=== PATIENT | male | born 1960 | race Caucasian/White ===

== ENCOUNTER 2021-02-27 16:48 | Emergency (ER) | payer BC ==
--- NOTE | 2021-02-27 18:07 | EDM.PDOC ---
<Jorge Barnett - Last Filed: 02/27/21 23:48> ED HPI GENERAL MEDICAL PROBLEM - General Chief Complaint: Respiratory Problem Stated Complaint: cough sob lung pain Time Seen by Provider: 02/27/21 17:40 - Related Data Allergies Allergy/AdvReac Type Severity Reaction Status Date / Time No Known Allergies Allergy Verified 02/27/21 17:23 Home Meds: Home Meds . [No Known Home Meds] 02/28/21 [History] #1 Interpretation EKG Date: 02/27/21 Time: 18:11 Rhythm: NSR Rate (Beats/Min): 91 [place]: Other (Extreme axis) P-Wave: Present QRS: Other (RVH) ST-T: Other (T-wave inversion inferior + anterolateral leads) QT: Normal Comparison: NA - No Prior EKG Course - Re-Assessments/Exams Free Text/Narrative Re-Assessment/Exam: 02/27/21 19:[address] Reaves for change of shift. I agree with his history and physical examination as documented, although the patient clarified that his symptoms initially began around 02/13/2021, that he tested negative for the SARS-CoV-2 virus on 02/16/2021, and that his symptoms worsened around 02/18/2021. He confirmed that he has not seen a physician for a general physical exam for more than 40 years. His only surgeries are wisdom teeth extractions and an umbilical herniorrhaphy. He does not smoke, nor has he ever. He drinks alcohol rarely. No history of drug abuse. He is single, living alone. He works at [employer]. He received 2 [employer] vaccinations. His oxygen saturation is about 97% while on 1.25 L of oxygen per nasal cannula. Portable chest x-ray is read by Dr. Garcia as: 1. Mild increased density within the right lung base. Difficult to exclude an area of pneumonia. Please correlate with the patient's symptoms. 2. Other findings believed to be incidental as noted above. 02/27/21 21:50 CT angiogram of the chest is read by [facility] as "Extensive bilateral acute pulmonary emboli. There are pulmonary infarctions and CT evidence of right heart strain." Based on the above, I have ordered a heparin bolus and drip. 02/27/21 22:12 Test results discussed with the patient. Obviously, he will require hospitalization. 02/27/21 23:[address] Monterroso at 22:46. We do have a medical bed available here, however, Dr. Monterroso is concerned that the patient might benefit from a thrombectomy. CT and portable chest x-ray images pushed to [facility] at 22:49. Case discussed with Donis at [facility] at 22:50. She stated that they have no beds available whatsoever. [facility] called at 22:52. CT and portable chest x-ray images pushed to [facility] at 22:53. Case discussed with Kajal at [facility] at 22:54. Case then discussed with Dr. Kyle, Interventional Radiologist at [facility], at 23:59. She felt that the patient has a submassive pulmonary embolus, and that he would benefit from thrombectomy. She could potentially perform the procedure at 6 AM, then board the patient in the ED post- procedurally, however, her music sound light technician would need to come in from [place], and would therefore need to leave at 03:00. She would prefer to have the patient go to a facility that has a bed for him post-procedurally. The plan, therefore, will be for us to check [facility], [facility], and [place]. If none of them can accept the patient, then we will transfer the patient to [facility]. 02/27/21 23:27 Notified that there are no beds are available at [facility]. Case discussed with Dr. Moreno, Hospitalist at [facility], at 23:19. They have a bed available, however, they do not have Interventional Radiology on-call , and he cannot accept the patient on their behalf. He suggested we call back at 08:00, at which time we would be able to discuss the case with the Interventional Radiologist. Notified that there are no beds available in [place]. 02/27/21 23:33 [facility] contacted at 23:29. Case discussed with Kajal at [facility] at 23:30. She discussed the case with Dr. Lazaro, ED Physician at [facility], at 23:32. He accepted the patient for transfer to their ED. The patient will go by ground ambulance. Departure - Departure Time of Disposition: 23:35 Disposition: DC/Tfer to Acute Hospital 02 Condition: Fair Clinical Impression: Pulmonary embolus - Discharge Information *PRESCRIPTION DRUG MONITORING PROGRAM REVIEWED*: Not Applicable *COPY OF PRESCRIPTION DRUG MONITORING REPORT IN PATIENT RAYMON: Not Applicable Referrals: PCP,None [Primary Care Provider] - Forms: ED Department Discharge <Hector Reaves - Last Filed: 03/04/21 07:41> ED HPI GENERAL MEDICAL PROBLEM - General Source of Information: Reports: Patient History Limitations: Reports: No Limitations - History of Present Illness INITIAL COMMENTS - FREE TEXT/NARRATIVE: Patient is a 60-year-old male with no known past medical history with chief complaint of shortness of breath and cough. Patient states he never sees a doctor and thinks the last time he saw primary care physician was decades ago. Patient states he started having symptoms on 18 February. The symptoms included cough and shortness of breath. He also had fatigue. Denies any fever. Patient states symptoms persisted and he was seen on the and had a Covid test done. This test was negative. Subsequently, patient continued to feel sick and went to the walk-in clinic on the where he was diagnosed with pneumonia and started on antibiotics. Patient reports has been compliant with antibiotics. However, he patient states he symptoms have persisted. Patient states he feels like he had some mild chest pain however this is improved. Patient reports his symptoms of shortness of breath worsen when he lies flat on his back. 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 Patient received series of Covid vaccination in October. Denies any sick contact exposure. No recent travels. Patient is not taking any other medications. ED ROS GENERAL - Review of Systems Review Of Systems: See Below Free Text/Narrative/Comment: In addition to that documented in the HPI above, the additional ROS was obtained: Constitutional: Denies fevers or chills Eyes: Denies vision changes ENMT: Denies sore throat CV: Denies chest pain Resp: Per HPI GI: Denies vomiting or diarrhea : Denies painful urination MSK: Denies recent trauma Skin: Denies new rashes Neuro: Denies new numbness or tingling or weakness Endocrine: Denies unexpected weight loss Heme: Denies bleeding disorders ED EXAM, GENERAL - Physical Exam Exam: See Below Free Text/Narrative:: I have reviewed the triage vital signs Const: Well nourished, well developed, appears stated age. No acute distress. Eyes: Pupils Equal and reactive to light bilaterally, no conjunctival injection HENT: No signs of trauma or swelling, Neck supple without meningismus CV: Regular Rate Rhythm, Warm, well-perfused extremities RESP: Mild tachypnea but able to speak full sentences. Examination limited by patient's body habitus GI: soft, non-tender, non-distended, no masses MSK: Bilateral lower extremity edema noted 2+ and symmetric. no gross deformities appreciated Skin: Warm, dry. No rashes Neuro: Alert, insole rasper II-XII grossly intact. Sensation and motor function of extremities grossly intact. Psych: Appropriate mood and affect. Course - Vital Signs Last Recorded V/S: Last Vital Signs Temp 36.4 C 02/28/21 00:15 Pulse 82 02/28/21 00:15 Resp 19 02/28/21 00:15 BP 130/78 02/28/21 00:15 Pulse Ox 94 L 02/28/21 00:15 - Orders/Labs/Meds Labs: Laboratory Tests 02/27/21 02/27/21 02/27/21 Range/Units 17:47 18:22 18:22 WBC 13.63 H (4.23-9.07) K/mm3 RBC 4.89 (4.63-6.08) M/mm3 Hgb 14.5 (13.7-17.5) gm/dl Hct 42.4 (40.1-51.0) % MCV 86.7 (79.0-92.2) fl MCH 29.7 (25.7-32.2) pg MCHC 34.2 (32.2-35.5) g/dl RDW Std Deviation 44.0 H (35.1-43.9) fL Plt Count 219 (163-337) K/mm3 MPV 9.6 (9.4-12.3) fl Neut % (Auto) 75.4 H (34.0-67.9) % Lymph % (Auto) 11.7 L (21.8-53.1) % [place] % (Auto) 12.5 H (5.3-12.2) % Eos % (Auto) 0.1 L (0.8-7.0) Baso % (Auto) 0.1 (0.1-1.2) % Neut # (Auto) 10.28 H (1.78-5.38) K/mm3 Lymph # (Auto) 1.59 (1.32-3.57) K/mm3 [place] # (Auto) 1.70 H (0.30-0.82) K/mm3 Eos # (Auto) 0.01 L (0.04-0.54) K/mm3 Baso # (Auto) 0.02 (0.01-0.08) K/mm3 Manual Slide Review PT (9.7-12.0) SECONDS INR APTT (21.7-31.4) SECONDS D-Dimer, Quantitative 2.10 H (0.19-0.50) mg/L Sodium (136-145) mEq/L Potassium (3.5-5.1) mEq/L Chloride (98-107) mEq/L Carbon Dioxide (21-32) mEq/L Anion Gap (5-15) BUN (7-18) mg/dL Creatinine (0.7-1.3) mg/dL Est Cr Clr Drug Dosing mL/min Estimated GFR (MDRD) (>60) mL/min BUN/Creatinine Ratio (14-18) Glucose (70-99) mg/dL Lactic Acid (0.4-2.0) mmol/L Calcium (8.5-10.1) mg/dL Total Bilirubin (0.2-1.0) mg/dL AST (15-37) U/L ALT (16-63) U/L Alkaline Phosphatase (46-116) U/L Troponin I (0.00-0.056) ng/mL NT-Pro-B Natriuret Pep (0-125) pg/mL Total Protein (6.4-8.2) g/dl Albumin (3.4-5.0) g/dl Globulin gm/dL Albumin/Globulin Ratio (1-2) SARS-CoV-2 RNA (ROSENDO) Negative (NEGATIVE) 02/27/21 02/27/21 02/27/21 Range/Units 18:22 18:22 18:22 WBC (4.23-9.07) K/mm3 RBC (4.63-6.08) M/mm3 Hgb (13.7-17.5) gm/dl Hct (40.1-51.0) % MCV (79.0-92.2) fl MCH (25.7-32.2) pg MCHC (32.2-35.5) g/dl RDW Std Deviation (35.1-43.9) fL Plt Count (163-337) K/mm3 MPV (9.4-12.3) fl Neut % (Auto) (34.0-67.9) % Lymph % (Auto) (21.8-53.1) % [place] % (Auto) (5.3-12.2) % Eos % (Auto) (0.8-7.0) Baso % (Auto) (0.1-1.2) % Neut # (Auto) (1.78-5.38) K/mm3 Lymph # (Auto) (1.32-3.57) K/mm3 [place] # (Auto) (0.30-0.82) K/mm3 Eos # (Auto) (0.04-0.54) K/mm3 Baso # (Auto) (0.01-0.08) K/mm3 Manual Slide Review PT (9.7-12.0) SECONDS INR APTT (21.7-31.4) SECONDS D-Dimer, Quantitative (0.19-0.50) mg/L Sodium 133 L (136-145) mEq/L Potassium 4.0 (3.5-5.1) mEq/L Chloride 99 (98-107) mEq/L Carbon Dioxide 21 (21-32) mEq/L Anion Gap 17.0 H (5-15) BUN 16 (7-18) mg/dL Creatinine 1.4 H (0.7-1.3) mg/dL Est Cr Clr Drug Dosing 62.62 mL/min Estimated GFR (MDRD) 52 (>60) mL/min BUN/Creatinine Ratio 11.4 L (14-18) Glucose 130 H (70-99) mg/dL Lactic Acid 1.3 (0.4-2.0) mmol/L Calcium 8.5 (8.5-10.1) mg/dL Total Bilirubin 1.2 H (0.2-1.0) mg/dL AST 27 (15-37) U/L ALT 28 (16-63) U/L Alkaline Phosphatase 69 (46-116) U/L Troponin I 0.132 H* (0.00-0.056) ng/mL NT-Pro-B Natriuret Pep 46348 H (0-125) pg/mL Total Protein 6.9 (6.4-8.2) g/dl Albumin 2.9 L (3.4-5.0) g/dl Globulin 4.0 gm/dL Albumin/Globulin Ratio 0.7 L (1-2) SARS-CoV-2 RNA (ROSENDO) (NEGATIVE) 02/27/21 Range/Units 18:22 WBC (4.23-9.07) K/mm3 RBC (4.63-6.08) M/mm3 Hgb (13.7-17.5) gm/dl Hct (40.1-51.0) % MCV (79.0-92.2) fl MCH (25.7-32.2) pg MCHC (32.2-35.5) g/dl RDW Std Deviation (35.1-43.9) fL Plt Count (163-337) K/mm3 MPV (9.4-12.3) fl Neut % (Auto) (34.0-67.9) % Lymph % (Auto) (21.8-53.1) % [place] % (Auto) (5.3-12.2) % Eos % (Auto) (0.8-7.0) Baso % (Auto) (0.1-1.2) % Neut # (Auto) (1.78-5.38) K/mm3 Lymph # (Auto) (1.32-3.57) K/mm3 [place] # (Auto) (0.30-0.82) K/mm3 Eos # (Auto) (0.04-0.54) K/mm3 Baso # (Auto) (0.01-0.08) K/mm3 Manual Slide Review PT 13.0 H (9.7-12.0) SECONDS INR 1.18 APTT 26.8 (21.7-31.4) SECONDS D-Dimer, Quantitative (0.19-0.50) mg/L Sodium (136-145) mEq/L Potassium (3.5-5.1) mEq/L Chloride (98-107) mEq/L Carbon Dioxide (21-32) mEq/L Anion Gap (5-15) BUN (7-18) mg/dL Creatinine (0.7-1.3) mg/dL Est Cr Clr Drug Dosing mL/min Estimated GFR (MDRD) (>60) mL/min BUN/Creatinine Ratio (14-18) Glucose (70-99) mg/dL Lactic Acid (0.4-2.0) mmol/L Calcium (8.5-10.1) mg/dL Total Bilirubin (0.2-1.0) mg/dL AST (15-37) U/L ALT (16-63) U/L Alkaline Phosphatase (46-116) U/L Troponin I (0.00-0.056) ng/mL NT-Pro-B Natriuret Pep (0-125) pg/mL Total Protein (6.4-8.2) g/dl Albumin (3.4-5.0) g/dl Globulin gm/dL Albumin/Globulin Ratio (1-2) SARS-CoV-2 RNA (ROSENDO) (NEGATIVE) Meds: Medications Discontinued Medications Generic Name Dose Route Start Last Admin Trade Name Freq PRN Reason Stop Dose Admin Heparin Sodium (Porcine) 5,000 units 02/27/21 21:47 02/27/21 22:40 Heparin Sodium 5,000 Units/Ml Vial IVPUSH 02/27/21 21:48 5,000 units .BOLUS STA Administration Sodium Chloride 100 mls @ 65 mls/min 02/27/21 19:45 02/27/21 20:59 Normal Saline IV 65 mls/min ASDIRECTED ELOY Administration Cefepime HCl 2 gm/ Sodium 50 mls @ 100 mls/hr 02/27/21 21:15 02/27/21 21:23 Chloride IV 02/27/21 21:44 100 mls/hr ONETIME ONE Administration Heparin Sodium/Dextrose 25,000 units in 500 mls @ 26 mls/hr 02/27/21 22:00 02/27/21 22:40 Heparin 25,000 Units In D5w 500 Ml IV 1,300 units/hr TITRATE ELOY 26 mls/hr Administration Protocol 1,300 UNITS/HR Sodium Chloride 1,000 mls @ 75 mls/hr 02/27/21 23:45 02/28/21 00:10 Normal Saline IV 75 mls/hr ASDIRECTED ELOY Administration Iopamidol 100 ml 02/27/21 19:32 02/27/21 20:59 Iopamidol 755 Mg/Ml 100 Ml Bottle IVPUSH 02/27/21 19:33 100 ml ONETIME ONE Administration Sodium Chloride 10 ml 02/27/21 19:32 02/27/21 20:59 Sodium Chloride 0.9% 10 Ml Sdv FLUSH 02/27/21 19:33 10 ml ONETIME ONE Administration Critical Care Note - Critical Care Note Total Time (mins): 30 Comments: Critical Care Procedure Note Total critical care time: Approximately 30 minutes Indication: Acute hypoxemic respiratory failure, NSTEMI Interventions: Supplemental oxygen, heparin Due to a high probability of clinically significant, life threatening deterioration, the patient required my highest level of preparedness to intervene emergently and I personally spent this critical care time directly and personally managing the patient. This critical care time included obtaining a history; examining the patient; pulse oximetry; ordering and review of studies; arranging urgent treatment with development of a management plan; evaluation of patient's response to treatment; frequent reassessment; and, discussions with other providers. This critical care time was performed to assess and manage the high probability of imminent, life-threatening deterioration that could result in multi-organ failure. It was exclusive of separately billable procedures and treating other patients and teaching time. Sepsis Event Note (ED) - Evaluation Sepsis Screening Result: No Definite Risk - Assessment/Plan Assessment:: Patient is a 60-year-old male presents emergency room with chief complaint of shortness of breath. Patient had markable ER course. He was mildly hypoxic on arrival but did improve with nasal cannula. Patient not in respiratory distress requiring BiPAP. Differential diagnosis considered for this patient include COVID-19, bacterial pneumonia, CHF exacerbation, pneumothorax. EKG reviewed on arrival demonstrates inferior lateral T wave inversions. Laboratory studies de monstrate evidence of elevated troponin and elevated D-dimer along with elevated white blood cell count. Lactic acid is pending at this time. Blood cultures were ordered and IV antibiotics were ordered as well. IV fluids withheld at this time given patient's clinical evidence of volume overload and concerns for possible CHF. Also considered on this differential include bacterial pneumonia, pulmonary embolism, NSTEMI. Patient signed out during routine shift change pending CT angiogram and ultimate disposition.
--- NOTE | 2021-02-27 18:33 | CR ---
Chest: Frontal view of the chest was obtained. Comparison: No prior chest imaging is available. Increased density is noted within the right lung base which mostly obscures the right hemidiaphragm. Left lung is clear. Right upper lung is clear. Heart size is within normal limits. Slight tortuosity of the thoracic aorta is seen. Bony structures show slight scoliosis within the spine with no acute osseous abnormality. Impression: 1. Mild increased density within the right lung base. Difficult to exclude an area of pneumonia. Please correlate with the patient's symptoms. 2. Other findings believed to be incidental as noted above. Diagnostic code #3
[2021-02-27] MEDS ORDERED: Cefepime 2 GM in Premix Bag 1 BAG IV ONE (18:54)
[2021-02-27] MEDS ORDERED: Sodium Chloride 0.9% 10 ML SDV FLUSH ONE (19:32)
[2021-02-27] MEDS ORDERED: Iopamidol 755 Mg/ML 100 ML Bottle IVPUSH ONE (19:32)
[2021-02-27] MEDS ORDERED: Sodium Chloride 0.9% 100 ML IV SCH (19:45)
[2021-02-27] MEDS ORDERED: Cefepime 2 GM in Sodium Chloride 0.9% 50 ML IV ONE (21:15)
[2021-02-27] MEDS ORDERED: Heparin Sodium 5,000 Units/ML Vial IVPUSH STA (21:47)
[2021-02-27] MEDS ORDERED: Heparin Sodium/D5W 25,000 UNITS/500 ML BAG IV SCH (22:00)
[2021-02-27] MEDS ORDERED: Sodium Chloride 0.9% 1,000 ML IV SCH (23:45)
--- NOTE | 2021-02-28 07:22 | CT ---
CT chest Technique: Multiple axial sections through the chest were obtained. Intravenous contrast was utilized. Study has been performed as a pulmonary angiogram protocol. Comparison: No prior chest CT is available, prior chest x-ray performed earlier on the same day (5:46 PM). Findings: Filling defects are seen within the distal right main pulmonary artery extending into the segmental branches of the right lower lung as well as subsegmental branches of the right lower lung compatible with fairly extensive pulmonary embolism. Pulmonary emboli are also noted within the right upper lung as well as left upper lung and left lower lung. Right ventricular cavity is enlarged as compared to the left ventricular cavity compatible with elevated right heart pressures. Heart is also slightly enlarged in size. Small right-sided pleural effusion is noted. Patchy areas of increased density are seen within the right lung base most likely representing early areas of pulmonary infarction. Slight atelectasis is seen within the left base. Atelectasis versus early infarct is noted within the right middle lobe. Bone window settings were obtained which show scattered degenerative change within the spine. No acute osseous abnormality is appreciated. Impression: 1. Extensive pulmonary embolism worse on the right side. 2. Elevated right heart pressures are noted. 3. Small right-sided pleural effusion. Early area of pulmonary infarction within the right lower lung. Infarction or atelectasis within right middle lobe as well as mild atelectasis within the left lower lobe. Diagnostic code #5 I agree with preliminary report from [facility], finalized on 02/27/21, 10:34 PM CDT, code 1
== END 2021-02-28 00:20 ==
LOC: JD.ED 16:48
DX: I26.99 Other pulmonary embolism without acute cor pulmonale (principal); Z20.822 Contact with and (suspected) exposure to COVID-19
CPT/HCPCS: 36415; 71045; 71275; 80053; 83605; 83880; 84484; 85025; 85379; 85610; 85730; 87040; 87635; 93005; 96365; 96366; 96367; 99285; J0692; J1644; J7030; Q9967; U0002

== ENCOUNTER 2024-09-20 10:37 | Day surgery (SDC) | payer BC ==
[~2024-09-20 10:37] MED LIST: Sodium Chloride 0.9% 10 ML Syringe FLUSH PRN; Sodium Chloride 0.9% 10 ML Syringe FLUSH SCH
[2024-09-20] MEDS: Lactated Ringers 1,000 ML IV SCH (10:50)
[2024-09-20] MEDS ORDERED: Midazolam 1 MG/ML 2 ML SDV ONE ×2 (11:44→12:21)
[2024-09-20] MEDS ORDERED: ceFAZolin 2 GM Vial ONE ×2 (11:49→11:57)
[2024-09-20] MEDS ORDERED: fentaNYL 100 MCG/2 ML SDV ONE ×2 (12:04→12:21)
[2024-09-20] MEDS: EPINEPHrine 1 MG/ML SDV ONE (13:00)
[2024-09-20] MEDS: Bupivacaine 0.5% 10 ML SDV ONE (13:00)
== END 2024-09-20 15:20 | disposition home or self-care (01) ==
LOC: JD.SDS 10:37
PROVIDERS: ATTEND Surgery
DX: K40.90 Unilateral inguinal hernia, without obstruction or gangrene, not specified as recurrent (principal); I11.0 Hypertensive heart disease with heart failure; I50.9 Heart failure, unspecified; D68.9 Coagulation defect, unspecified; Z79.01 Long term (current) use of anticoagulants; Z79.899 Other long term (current) drug therapy
CPT/HCPCS: 49505; J0171; J0665; J0690; J2250; J3010; J7120; C1781